=== PATIENT | male | born 1955 | race Caucasian/White ===

== ENCOUNTER 2017-05-14 14:03 | Emergency (ER) | payer MEDICARE, OTHER | END 2017-05-14 16:00 | disposition home or self-care (01) | LOC: ER 14:03 | DX: K62.3 Rectal prolapse (principal); M79.5 Residual foreign body in soft tissue; W19.XXXS Unspecified fall, sequela; I10 Essential (primary) hypertension; F17.210 Nicotine dependence, cigarettes, uncomplicated; Z79.899 Other long term (current) drug therapy; Z79.891 Long term (current) use of opiate analgesic | CPT/HCPCS: 99282 ==

== ENCOUNTER 2017-08-12 14:20 | Emergency (ER) | payer MEDICARE, OTHER ==
[2017-08-12 15:10] LABS: BASO # 0.1 10_X3_uL (0.0-0.1); BASO % 0.5 % (0.2-1.2); EOS # 0.2 10_X3_uL (0.0-0.5); EOS % 1.5 % (0.8-7.0); GRAN # 7.8 10_X3_uL (1.8-5.4); GRAN % 65.9 % (34.0-67.9); HEMATOCRIT 42.2 % (40-51); HEMOGLOBIN 14.5 g/dL (13.7-17.5); LYMPH # 2.5 10_X3_uL (1.3-3.6); LYMPH % 21.2 % (21.8-53.1); MEAN CORPUSCULAR HEMOGLOBIN 33.7 pg (27.0-33.0); MEAN CORPUSCULAR HGB CONC 34.4 g/dL (32.0-36.0); MEAN CORPUSCULAR VOLUME 98.1 fL (79-92); MEAN PLATELET VOLUME 8.3 fl (7.5-11.5); MONO # 1.3 10_X3_uL (0.3-0.8); MONO % 10.9 % (5.3-12.2); PLATELET COUNT 305 x10_3/uL (163-337); RED CELL DISTRIBUTION WIDTH 12.9 % (11.6-14.4); WHITE BLOOD COUNT 11.9 x10_3/uL (4.2-9.1)
[2017-08-12 15:20] LABS: PROTHROMBIN TIME (PATIENT) 10.2 SECONDS (9.6-10.8)
[2017-08-12 15:29] LABS: ALBUMIN 4.1 gm/dL (3.4-5.0); ALKALINE PHOSPHATASE 69 U/L (50-136); ALT/SGPT 12 U/L (7.53-40.17); AST/SGOT 26 U/L (6.66-35.34); BILIRUBIN,TOTAL 0.26 mg/dL (0.0-1.0); BLOOD UREA NITROGEN 4 mg/dL (7-18); CALCIUM 9.3 mg/dL (8.7-10.7); CARBON DIOXIDE 26 mmol/L (21-32); CREATININE 0.6 mg/dL (0.6-1.3); GLUCOSE,RANDOM 82 mg/dL (70-99); LIPASE 31 U/L (6.75-60.75); POTASSIUM 3.7 mmol/L (3.5-5.1); SODIUM 131 mmol/L (136-145); TOTAL PROTEIN 7.2 gm/dL (6.4-8.2)
[2017-08-12 15:42] LABS: ETHYL ALCOHOL 276 mg/dl
== END 2017-08-12 18:10 | disposition home or self-care (01) ==
LOC: ER 14:20
PROVIDERS: Internal Medicine
DX: K62.5 Hemorrhage of anus and rectum (principal); F10.129 Alcohol abuse with intoxication, unspecified; I11.9 Hypertensive heart disease without heart failure; F17.210 Nicotine dependence, cigarettes, uncomplicated
CPT/HCPCS: 36415; 74150; 80053; 83690; 85025; 85610; 99283; 99283-25; G0328-QW; G0480